=== PATIENT | female | born 1950 | race Caucasian/White ===

== ENCOUNTER 2022-05-06 18:20 | Inpatient (IN) | payer MEDICARE, OTHER ==
[~2022-05-06] VITALS: Ht 157.5 cm; Wt 50.0 kg
[2022-05-06 19:06] LABS: HEMOGLOBIN 14.3 gm/dl (12.3-15.3); RED BLOOD COUNT 5.18 M/UL (4.00-5.10); WHITE BLOOD COUNT 13.6 K/UL (4.5-11.0)
[2022-05-06 19:52] LABS: BUN/CREATININE RATIO 31 (0-10)
[2022-05-07 00:09] LABS: BUN/CREATININE RATIO 32 (0-10)
[2022-05-07 04:46] LABS: BUN/CREATININE RATIO 35 (0-10)
[2022-05-07 08:23] LABS: WHITE BLOOD COUNT 14.7 K/UL (4.5-11.0)
[2022-05-07 08:47] LABS: BUN/CREATININE RATIO 32 (0-10)
[2022-05-07 08:55] LABS: HEMOGLOBIN 12.1 gm/dl (12.3-15.3); RED BLOOD COUNT 4.44 M/UL (4.00-5.10)
[2022-05-07] MEDS ORDERED: JARDIANCE25 MG PO (11:36)
[2022-05-07] MEDS ORDERED: GLUCOPHAGE 500500 MG PO (11:37)
[2022-05-07] MEDS ORDERED: LISINOPRIL2.5 MG PO (11:37)
[2022-05-07] MEDS ORDERED: CETIRIZINE HCL10 MG PO (11:38)
[2022-05-07] MEDS ORDERED: OMEPRAZOLE20 MG PO (11:38)
[2022-05-07] MEDS ORDERED: ATORVASTATIN CA20 MG PO (11:39)
[2022-05-07] MEDS ORDERED: MULTIVITAMIN1 EACH PO (11:40)
[2022-05-07] MEDS ORDERED: LANTUS SOL100 UNIT/1 SQ (11:41)
[2022-05-07] MEDS ORDERED: TRULICITY3 MG/0.5 M SQ ×2 (11:43→14:31)
[2022-05-07 12:23] LABS: BUN/CREATININE RATIO 29 (0-10)
[2022-05-07 19:46] LABS: BUN/CREATININE RATIO 28 (0-10)
[2022-05-08 04:54] LABS: RED BLOOD COUNT 4.38 M/UL (4.00-5.10); WHITE BLOOD COUNT 13.3 K/UL (4.5-11.0)
[2022-05-08 05:14] LABS: BUN/CREATININE RATIO 24 (0-10)
[2022-05-08 14:16] LABS: ADENOVIRUS F 40/41 Not Detected (Negative); ASTROVIRUS Not Detected (Negative); CAMPYLOBACTER Not Detected (Negative); CRYPTOSPORIDIUM Not Detected (Negative); E.COLI 0157 Not Detected (Negative); ENTAMOEBA HISTOLYTICA Not Detected (Negative); ENTEROAGGREGATIVE E.COLI (EAEC Not Detected (Negative); ENTEROPATHOGENIC E.COLI (EPEC) Not Detected (Negative); ENTEROTOXIGENIC E.COLI (ETEC) Not Detected (Negative); GIARDIA LAMBLIA Not Detected (Negative); NOROVIRUS GI/GII Not Detected (Negative); PLESIOMONAS SHIGELLOIDES Not Detected (Negative); ROTOVIRUS A Not Detected (Negative); SAPOVIRUS Not Detected (Negative); SHIG/ENTEROINVAS.ECOLI (EIEC) Not Detected (Negative); SHIGA-LIK TOX.PRO.E.COLI (STEC Not Detected (Negative); VIBRIO Not Detected (Negative); VIBRIO CHOLERAE Not Detected (Negative); YERSINIA ENTEROCOLITICA Not Detected (Negative)
[2022-05-08 15:49] LABS: CLOSTRIDIUM DIFFICILE TOX A/B Not Detected (Negative)
[2022-05-08 15:50] LABS: SALMONELLA DETECTED (Negative)
[2022-05-08 17:30] LABS: BUN/CREATININE RATIO 23 (0-10)
[2022-05-09 06:34] LABS: HEMOGLOBIN 10.4 gm/dl (12.3-15.3)
[2022-05-09 07:01] LABS: RED BLOOD COUNT 3.84 M/UL (4.00-5.10); WHITE BLOOD COUNT 9.4 K/UL (4.5-11.0)
[2022-05-09 07:03] LABS: BUN/CREATININE RATIO 22 (0-10)
[2022-05-10 05:49] LABS: HEMOGLOBIN 10.2 gm/dl (12.3-15.3); RED BLOOD COUNT 3.7 M/UL (4.00-5.10); WHITE BLOOD COUNT 8.9 K/UL (4.5-11.0)
[2022-05-10 06:16] LABS: BUN/CREATININE RATIO 7 (0-10)
[2022-05-10] MEDS ORDERED: LANTUS INS100 UTS/M1 SQ ×2 (09:49→11:52)
[2022-05-10] MEDS ORDERED: PHOS-NAK PACKET1 EA PO (11:18)
[2022-05-10] MEDS ORDERED: HUMALOG 10100 UNITS/ SC (11:18)
[2022-05-10] MEDS ORDERED: LEVOFLOXACIN750 MG PO (11:18)
[2022-05-10] MEDS ORDERED: PHENERGAN 25 MG25 M1 PO (11:52)
[2022-05-10] MEDS ORDERED: PROTONIX 40 MG40 M1 PO (11:52)
[2022-05-10] MEDS ORDERED: DEX4 GLUCOSE4 GM PO (11:53)
== END 2022-05-10 13:22 | disposition home or self-care (01) | DRG 371 ==
LOC: ER1 18:20 → CCU 05-07 00:34 → CDU 05-07 00:34 → MED SURG 4 05-07 00:34 → CCU 05-07 02:44 → MED SURG 4 05-08 17:28
PROVIDERS: Emergency Medicine; Internal Medicine; Internal Medicine Infectious Disease; Nurse Practitioner; ADMIT Internal Medicine
DX: A02.0 Salmonella enteritis (principal); E09.10 Drug or chemical induced diabetes mellitus with ketoacidosis without coma; E86.0 Dehydration; I10 Essential (primary) hypertension; Z20.822 Contact with and (suspected) exposure to COVID-19; E87.6 Hypokalemia; L89.151 Pressure ulcer of sacral region, stage 1; E83.39 Other disorders of phosphorus metabolism; Z82.49 Family history of ischemic heart disease and other diseases of the circulatory system; Z79.899 Other long term (current) drug therapy; Z79.4 Long term (current) use of insulin; Z90.710 Acquired absence of both cervix and uterus; T38.3X5A Adverse effect of insulin and oral hypoglycemic [antidiabetic] drugs, initial encounter
CPT/HCPCS: 36415; 71045; 80048; 80053; 81001; 82009; 82550; 82553; 82803; 82962; 83605; 83690; 83735; 84100; 84132; 84484; 85025; 85027; 87045; 87046; 87077; 87086; 87177; 87186; 87209; 87324; 87507; 94640; 94760; 96374; 96375; 99285; C9113; J0692; J0696; J1650; J2405; J3480; J7030; Q9967; U0002

== ENCOUNTER → 2022-05-23 | Outpatient (CLI) | payer MEDICARE, OTHER ==
[~2022-05-23] MED LIST: ATORVASTATIN CA20 MG PO; CETIRIZINE HCL10 MG PO; DEX4 GLUCOSE4 GM PO; GLUCOPHAGE 500500 MG PO; HUMALOG 10100 UNITS/ SC; JARDIANCE25 MG PO; LANTUS INS100 UTS/M1 SQ; LANTUS SOL100 UNIT/1 SQ; LEVOFLOXACIN750 MG PO; LISINOPRIL2.5 MG PO; MULTIVITAMIN1 EACH PO; OMEPRAZOLE20 MG PO; PHENERGAN 25 MG25 M1 PO; PHOS-NAK PACKET1 EA PO; PROTONIX 40 MG40 M1 PO; TRULICITY3 MG/0.5 M SQ
== END ==
LOC: US 08:41
DX: R10.11 Right upper quadrant pain (principal); K82.8 Other specified diseases of gallbladder
CPT/HCPCS: 76705